=== PATIENT | male | born 1985 | race Caucasian/White ===

== ENCOUNTER 2022-12-28 12:04 | Day surgery (SDC) | payer OTHER ==
[~2022-12-28] VITALS: Ht 177.8 cm; Wt 111.6 kg
[~2022-12-28 12:04] MED LIST: LIDOCAINE 2% 100MG/5ML SDV (FOR ANES.) As Ordered ONE; NS 1,000 ML IV ONE; PANT40TA29 PO; propofoL 200 MG/20 ML VIAL As Ordered ONE
[2022-12-28] MEDS ORDERED: fentaNYL 100 MCG/2 ML INJECTION As Ordered ONE (14:01)
[2022-12-28 14:23] VITALS: TEMP 96.9
[2022-12-28 14:40] VITALS: BP 131/52; O2SAT 95
== END 2022-12-28 14:46 | disposition home or self-care (01) ==
LOC: M OPP 12:04
PROVIDERS: ATTEND Internal Medicine Gastroenterology
DX: K21.00 Gastro-esophageal reflux disease with esophagitis, without bleeding (principal); K31.89 Other diseases of stomach and duodenum; K90.0 Celiac disease; Z79.899 Other long term (current) drug therapy; Z88.2 Allergy status to sulfonamides; Z88.5 Allergy status to narcotic agent
CPT/HCPCS: 43239; 88305; J3010